=== PATIENT | female | born 1965 | race Caucasian/White ===

== ENCOUNTER 2021-01-31 13:39 | Outpatient (CLI) | payer OTHER | END 2021-01-31 13:40 | disposition home or self-care (01) | LOC: BICMRI 13:39 | PROVIDERS: ATTEND Internal Medicine | DX: M54.5 Low back pain (principal); M51.37 Other intervertebral disc degeneration, lumbosacral region; M51.27 Other intervertebral disc displacement, lumbosacral region; M51.36 Other intervertebral disc degeneration, lumbar region; M48.061 Spinal stenosis, lumbar region without neurogenic claudication; M48.07 Spinal stenosis, lumbosacral region | CPT/HCPCS: 72148 ==

== ENCOUNTER 2021-04-21 13:04 | Outpatient (CLI) | payer OTHER | END 2021-04-21 13:05 | disposition home or self-care (01) | LOC: BICCT 13:04 | PROVIDERS: ATTEND Neurological Surgery | DX: M54.50 Low back pain, unspecified (principal); M47.817 Spondylosis without myelopathy or radiculopathy, lumbosacral region; M51.26 Other intervertebral disc displacement, lumbar region; M48.061 Spinal stenosis, lumbar region without neurogenic claudication; M51.86 Other intervertebral disc disorders, lumbar region; M25.78 Osteophyte, vertebrae; N28.89 Other specified disorders of kidney and ureter | CPT/HCPCS: 72110; 72131 ==

== ENCOUNTER 2021-06-02 08:18 | Outpatient (CLI) | payer OTHER ==
[2021-06-02] MEDS ORDERED: Iopamidol 370 76% 100 ML VIAL ONE (14:31)
== END 2021-06-02 08:19 | disposition home or self-care (01) ==
LOC: CT 08:18
PROVIDERS: ATTEND Internal Medicine
DX: R93.7 Abnormal findings on diagnostic imaging of other parts of musculoskeletal system (principal); R93.5 Abnormal findings on diagnostic imaging of other abdominal regions, including retroperitoneum; D30.02 Benign neoplasm of left kidney; R59.0 Localized enlarged lymph nodes; I72.2 Aneurysm of renal artery
CPT/HCPCS: 74177; 82565; Q9967

== ENCOUNTER 2022-05-30 11:53 | Outpatient (CLI) | payer OTHER | END 2022-05-30 11:54 | disposition home or self-care (01) | LOC: BICMAMMO 11:53 | PROVIDERS: ATTEND Internal Medicine | DX: Z12.31 Encounter for screening mammogram for malignant neoplasm of breast (principal); Z80.3 Family history of malignant neoplasm of breast | CPT/HCPCS: 77063; 77067 ==

== ENCOUNTER 2022-06-22 10:41 | Outpatient (CLI) | payer OTHER | END 2022-06-22 10:42 | disposition home or self-care (01) | LOC: TBSIIMAG 10:41 | PROVIDERS: ATTEND Anesthesiology Pain Medicine | DX: M51.26 Other intervertebral disc displacement, lumbar region (principal); M47.816 Spondylosis without myelopathy or radiculopathy, lumbar region; M47.817 Spondylosis without myelopathy or radiculopathy, lumbosacral region; N28.9 Disorder of kidney and ureter, unspecified; I72.2 Aneurysm of renal artery; M25.78 Osteophyte, vertebrae; M51.27 Other intervertebral disc displacement, lumbosacral region; M43.8X6 Other specified deforming dorsopathies, lumbar region | CPT/HCPCS: 72148 ==

== ENCOUNTER 2022-09-11 08:13 | Outpatient (CLI) | payer OTHER | END 2022-09-11 08:14 | disposition home or self-care (01) | LOC: CT 08:13 | PROVIDERS: ATTEND Internal Medicine | DX: N28.1 Cyst of kidney, acquired (principal); I72.2 Aneurysm of renal artery | CPT/HCPCS: 74170 ==

== ENCOUNTER 2024-12-30 12:47 | Outpatient (CLI) | payer OTHER ==
[2024-12-30] MEDS ORDERED: Iopamidol 370 76% 100 ML VIAL ONE (15:29)
== END 2024-12-30 12:48 | disposition home or self-care (01) ==
LOC: CT 12:47
PROVIDERS: ATTEND Thoracic Surgery (Cardiothoracic Vascular Surgery)
DX: I72.2 Aneurysm of renal artery (principal); N28.89 Other specified disorders of kidney and ureter
CPT/HCPCS: 74174; Q9967

== ENCOUNTER 2025-05-11 13:04 | Outpatient (CLI) | payer OTHER | END 2025-05-11 13:05 | disposition home or self-care (01) | LOC: BICMAMMO 13:04 | PROVIDERS: ATTEND Internal Medicine | DX: Z12.31 Encounter for screening mammogram for malignant neoplasm of breast (principal); Z80.3 Family history of malignant neoplasm of breast | CPT/HCPCS: 77063; 77067 ==